=== PATIENT | female | born 1985 | race Caucasian/White ===

== ENCOUNTER → 2016-06-10 | Outpatient (CLI) | payer BC ==
[~2016-06-10] MED LIST: MULT-506 PO
[2016-06-11 15:25] LABS: URINE APPEARANCE CLEAR (CLEAR); URINE BILIRUBIN NEG (NEG); URINE COLOR YELLOW; URINE NITRITE NEG (NEG); URINE PH 7.5 (4.5-7.5); URINE SPECIFIC GRAVITY 1.012 (1.000-1.030); UROBILINOGEN NEG (NEG)
[2016-06-11 15:32] LABS: MANUAL MICROSCOPIC REQUIRED? NO; REVIEW REQ? NO
== END | disposition home or self-care (01) ==
LOC: C.LABSPEC 14:56
PROVIDERS: ATTEND Obstetrics & Gynecology
DX: R30.9 Painful micturition, unspecified (principal); R35.0 Frequency of micturition

== ENCOUNTER → 2016-06-11 | Outpatient (CLI) | payer BC | END | disposition home or self-care (01) | LOC: C.PAPS 16:58 | PROVIDERS: ATTEND Obstetrics & Gynecology | DX: Z01.419 Encounter for gynecological examination (general) (routine) without abnormal findings (principal) ==

== ENCOUNTER → 2016-07-08 | Outpatient (CLI) | payer BC ==
[2016-07-08 13:12] LABS: BASO % 0.8 %; BASO ABS # 0.04 K/uL (0-0.2); COMPLETE YES; EOS % 4.3 %; HEMATOCRIT 40.9 % (37-47); IG% 0.2 %; LYMPH % 39.8 %; LYMPH ABS # 2.06 K/uL (1.2-3.4); MEAN CELL VOLUME 91.5 fL (80-100); MONO % 5.6 %; NEUT % 49.3 %; PLATELET COUNT 253 K/uL (130-400); RED BLOOD COUNT 4.47 M/uL (4.2-5.4); WHITE BLOOD COUNT 5.17 K/uL (4.8-10.8)
[2016-07-08 13:37] LABS: PREG INTERNAL NEGATIVE QC NEG CLEAR BACKGROUND; PREG INTERNAL POSITIVE QC POS CONTROL LINE
== END | disposition home or self-care (01) ==
LOC: C.LAB 12:01
PROVIDERS: ATTEND Obstetrics & Gynecology
DX: Z01.812 Encounter for preprocedural laboratory examination (principal); R10.2 Pelvic and perineal pain; R39.15 Urgency of urination; N84.1 Polyp of cervix uteri

== ENCOUNTER → 2016-07-11 | Day surgery (SDC) | payer BC ==
[2016-07-05 10:12] VITALS: Ht 160 cm; Wt 63.6 kg
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
[~2016-07-11] VITALS: Ht 160 cm; Wt 63.6 kg
[~2016-07-11] MED LIST changes: +ATROPINE SULFATE 0.1 MG/ML 5ML SYR IV PRN; +BUPIVACAINE 0.5 % 5 MG/1 ML PF 10ML VIAL ONE; +BUPIVACAINE/EPINEPHRINE 0.5% MPF 1:200,000 30 ML VIAL ONE; +DEXAMETHASONE SOD INJ 4 MG/ML VIAL ONE; +DiphenhydrAMINE HCL 50 MG/ML VIAL ONE; +EpHEDrine SULFATE INJ 50 MG/ML AMP IV PRN; +FENTANYL CITRATE INJ 50 MCG/1 ML 2 ML VIAL IV PRN; +FENTANYL CITRATE INJ 50 MCG/1 ML 2 ML VIAL ONE; +GLYCOPYRROLATE INJ 0.2 MG/ML VIAL ONE; +HYDROCODONE/ACETAMOPHEN 5/325MG TAB PO PRN; +IBUPROFEN 600 MG TAB PO PRN; +KETOROLAC TROMETHAMINE 30 MG/ML VIAL IV. PRN; +LACTATED RINGER'S 1000ML 1,000 ML IV SCH; +LIDOCAINE HCL 2% 2 ML VIAL (20MG/ML) ONE; +METOCLOPRAMIDE HCL INJ 5 MG/ML 2 ML VIAL ONE; +MIDAZOLAM HCL 1 MG/ML 2ML VIAL ONE; -MULT-506 PO; +NEOSTIGMINE METHYLSULFATE 5 MG/5 ML SYR ONE; +ONDANSETRON INJ 2 MG/ML 2 ML VIAL IV PRN; +ONDANSETRON INJ 2 MG/ML 2 ML VIAL ONE; +OXYCODONE/ACETAMINOPHEN 5-325 TAB PO PRN; +PROPOFOL IV EMULSION 10 MG/ML 20 ML VIAL IV ONE; +RANITIDINE HCL 25 MG/ML INJ ONE; +ROCURONIUM BROMIDE 10 MG/ML 5 ML VIAL ONE; +SCOPOLAMINE 1.5 MG TDSY TD ONE; +SODIUM CHLORIDE 0.9% 1000ML 1,000 ML IV SCH; +SODIUM CHLORIDE 0.9% INJ 10 ML VIAL ONE
--- NOTE | 2016-07-11 08:58 | History & Physical Bridge Note ---
H&P Re-Evaluation Bridge Note: I have examined the patient, reviewed the History & Physical and in the interval since the performance of the History & Physical I have noted the following changes of clinical significance: No changes noted
--- NOTE | 2016-07-11 10:27 | [facility] Post Operative Brief Note ---
Immediate Operative Summary Operative Date Jul 11, 2016. Pre-Operative Diagnosis Heavy Vaginal Bleeding, Pelvic Pain, Endometrial Polyp on Transvaginal Ultrasound Post-Operative Diagnosis Same Procedure(s) Performed Dilitation And Curettage, Hysteroscopy, Diagnostic Laparoscopy Surgeon Dr. 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 Endometrial Curettings B. Biopsy Cul de Sac Endometriosis Complication(s) None Disposition Recovery Room / PACU
--- NOTE | 2016-07-11 10:30 | Discharge Instructions-SurgCtr ---
Discharge Instructions Date of Service Jul 11, 2016. Visit Reason for Visit: Pelvic Fullness, Urinary Urgency, Endometrial Poly Discharge Discharge Diagnosis / Problem: endometriosis heavy vaginal bleeding Discharge Goals Goal(s): Improve function, Learn about illness Activity Recommendations Activity Limitations: as noted below ACTIVITY RECOMMENDATIONS: * Avoid tampons, douching, hot tubs, pools, and intercourse until bleeding has stopped. * May shower as usual. * No strenuous activity for 24-48 hours. After 24-48 hours, you can do anything you feel like doing (driving and sports are okay). RETURN TO SCHOOL/WORK: * You may return to school or work after 24 hours unless specified by your physician. DIET: * Resume previous diet. MEDICATIONS: Resume previous medications unless instructed otherwise by your surgeon. Ibuprofen 200mg 2-3 tablets every 4-6 hours as needed --OR-- Aleve 2 tablets every 8-12 hours as needed for post-operative discomfort Medications are over the counter. Tylenol may be used if above medications are contraindicated or not preferred. Medication should be taken with food or milk. do not take on an empty stomach. SPECIAL CARE INSTRUCTIONS: * Check temperature twice daily for one week. Report any elevation over 101 degrees. * Call office if you experience increased pelvic pain or discomfort not relieved by pain medicine, if you have foul smelling vaginal discharge, if you have bleeding that is heavier than a normal menstrual flow. If you are changing a maxi pad every 1- 2 hours, this is too heavy. vaginal spotting is normal for 1-2 weeks. FOLLOW UP VISIT: Call your doctor's office for a post-operative visit. SPECIAL CARE INSTRUCTIONS: * Check temperature twice daily for one week. Report any elevation over 100.4 degrees Fahrenheit (38.0 degrees Celsius). * Call office in the next few days for return appointment. * You may experience some vaginal spotting and/or bleeding, this is normal for one or two weeks and should not alarm you. * Post-operative discomfort may consist of a sore throat, a "bloated" feeling and pain in the shoulders. These are normal symptoms which usually only last for two or three days. FOLLOW UP VISIT: Keep any scheduled doctor appointments. Anesthesia . Post Anesthesia Instructions: If you have had General Anesthesia or IV Sedation: * Do not drive today. * Resume driving when surgeon permits. * Do not make important decisions or sign legal documents today. * Call surgeon for: 1. Temperature elevations greater than 101 degrees F. 2. Uncontrollable pain. 3. Excessive bleeding. 4. Persistent nausea and vomiting. 5. Medication intolerance (nausea, vomiting or rash). * For nausea and vomiting use only clear liquids such as: tea, soda, bouillon until nausea subsides, then gradually increase diet as tolerated. * If you have any concerns or questions, call your surgeon's office. If physician is unavailable and it is an emergency, call 911 or go to the nearest emergency room. . Diet Recommendations Home Diet: resume previous diet Procedures Procedures Performed: Dilitation And Curettage, Hysteroscopy, Diagnostic Laparoscopy Pending Studies Studies pending at discharge: no Medical Emergencies . Who to Call and When: Medical Emergencies: If at any time you feel your situation is an emergency, please call 911 immediately. . Non-Emergent Contact Non-Emergency issues call your: Professor Of Theology Call Non-Emergent contact if: temperature is above 100.5 . . "Provider Documentation" section prepared by Jose Savage.
--- NOTE | 2016-07-11 10:45 | OPERATIVE REPORT ---
DATE OF OPERATION: 07/11/2016 PROCEDURES: D\T\C, hysteroscopy, polypectomy, diagnostic laparoscopy with peritoneal biopsy. SURGEON: Dr. Savage. ESTIMATED BLOOD LOSS: 10 mL ANESTHESIA: General. OPERATIVE FINDINGS AND PROCEDURE: The patient was brought to the OR table, correctly identified by armband and conversation. General anesthesia was administered. Perineum, vagina and lower abdomen were painted with Betadine paint, draped in usual sterile fashion. Cota catheter was used to empty the bladder. Careful pelvic exam under anesthesia revealed a top normal size anteverted uterus. There were no adnexal masses appreciated. Weighted speculum was placed in the posterior vagina. Anterior lip of the cervix was grasped with single tooth tenaculum. Uterus sounded to 9 cm. Cervix was dilated with graduated dilators. Hysteroscope with saline distention medium was inserted and photographs were taken of the endometrial cavity. A polyp was noted which had been seen previously on ultrasound. Following this, the scope was removed. I inserted a polyp forceps several times and proceeded to remove large pieces of the polyp with the forceps. I then did a thorough and systematic curettage, submitted all tissues for pathological evaluation. Reinserted the hysteroscope. There was still an area on the anterior portion of the uterus on the patient's left side that needed to be removed, so I removed the scope and opened up and closed polyp forceps several times and scraped that area. Following this, I rescoped the patient. All tissues had been removed. I then removed the scope, inserted an acorn cannula for manipulation of the uterus and connected it to tenaculum. Attention was turned to the lower abdomen. Subumbilical area was infiltrated with local with epinephrine. Stab wound was placed. A Veress needle was inserted into the abdominal cavity, 2-1/2 liters of carbon dioxide gas was passed under low pressure. Incision was then widened laterally. The Veress needle was removed, and then a large cannula and trocar was inserted. Trocar was removed and then the laparoscope was inserted. Good visualization of pelvic structures was obtained at this time. Second puncture site was made in the midline, 3 fingerbreadths above the pubic symphysis. This area was also infiltrated with local with epinephrine. Stab wound was made. A 5 mm trocar and sleeve was inserted under direct visualization. Following this, both tubes and ovaries were noted to be normal, freely mobile. There was endometriosis involving the uterosacral ligaments and the cul-de-sac. Photographs were taken. There was more involvement of the left uterosacral ligament, but there was involvement on both sides, and then I used the peritoneal biopsy to biopsy a small lesion of endometriosis between the 2 uterosacral ligaments on the patient's left side. After the biopsy, there was no bleeding. I did not need any cauterization. I photographed everything, expressed the gas manually, removed the trocars, cleaned the other port sites with Betadine and sutured with interrupted Vicryl. I attest to the content of the Intraoperative Record and any orders documented therein. Any exceptio ns are noted below.
[2016-07-11 11:22] VITALS: TEMP 36.8
[2016-07-11 11:50] VITALS: BP 104/70; PULSE 75; O2SAT 98
--- NOTE | 2016-07-11 12:12 | Anesthesia Progress Nt - [facility] ---
Anesthesia Post Op Note Date & Time Jul 11, 2016 at 12:13 Vital Signs Pain Intensity: 1 Vital Signs Past 12 Hours Date Time Temp Pulse Resp B/P Pulse Ox O2 Delivery O2 Flow Rate FiO2 07/11/16 11:50 75 16 104/70 98 Room Air 07/11/16 11:22 36.8 61 16 108/71 97 Room Air 07/11/16 11:12 67 3 07/11/16 11:12 66 3 100 07/11/16 11:11 113/70 07/11/16 11:08 37.1 71 12 107/67 100 Room Air 07/11/16 11:07 63 5 100 07/11/16 11:07 62 5 07/11/16 11:06 107/67 07/11/16 11:04 62 7 100 07/11/16 11:04 62 7 07/11/16 11:01 101/67 07/11/16 10:59 63 21 100 07/11/16 10:59 64 21 07/11/16 10:57 108/55 07/11/16 10:54 70 17 100 07/11/16 10:54 70 17 07/11/16 10:53 72 22 100 07/11/16 10:53 73 22 07/11/16 10:51 105/73 07/11/16 10:48 72 4 100 07/11/16 10:48 73 4 07/11/16 10:46 99/66 07/11/16 10:43 80 0 100 07/11/16 10:43 80 0 07/11/16 10:42 88 12 100 07/11/16 10:42 88 12 07/11/16 10:41 104/76 07/11/16 10:37 89 20 07/11/16 10:37 89 20 110/71 100 07/11/16 10:33 116/72 07/11/16 10:32 37.0 102 16 116/72 100 Diffusion Mask 6 07/11/16 08:15 36.7 62 16 104/68 99 Room Air Notes Mental Status: alert / awake / arousable, participated in evaluation Pt Amnestic to Procedure: Yes Nausea / Vomiting: adequately controlled Pain: adequately controlled Airway Patency, RR, SpO2: stable & adequate BP & HR: stable & adequate Hydration State: stable & adequate Anesthetic Complications: no major complications apparent
== END | disposition home or self-care (01) ==
LOC: X.SURG 08:01
PROVIDERS: ATTEND Obstetrics & Gynecology
DX: N80.3 Endometriosis of pelvic peritoneum (principal); N84.0 Polyp of corpus uteri; N93.8 Other specified abnormal uterine and vaginal bleeding; Z98.890 Other specified postprocedural states; F17.210 Nicotine dependence, cigarettes, uncomplicated